=== PATIENT | female | born 1940 | race Caucasian/White ===

== ENCOUNTER → 2017-01-09 | Outpatient (CLI) | payer MEDICARE, BC ==
[~2017-01-09] MED LIST: AMPH20TA2 PO; ASPI325T32 PO; CHOL100062 PO; GLUC1TAB33 PO; MULT1TAB6 PO; OMEG1CAP31 PO; OXYC-481 PO; POTA99TA PO; UBID10CA7 PO
--- NOTE | 2017-01-09 16:23 | PN ---
Date/Time of Note Date/Time of Note DATE: 01/09/17 TIME: 16:19 Outpatient Progress Note Chief Complaint 9 month postop right total hip replacement HPI 76-year-old female presents today for 9 month postoperative follow-up status post right total hip replacement. Originally scheduled to follow-up 6 months after surgery but patient unfortunately had tragic passing of her . Patient is doing well. In regards to the right hip, she denies any pain complaints of the right hip. Patient is return to normal function. She states that upon discharge from the hospital from the surgery that was performed on 03/24/2016, she has had no use for walker or cane. Return to full functionality. Is very pleased status post surgery. Patient states however that she has had frequent urination, typically at night. She has followed up with her primary who underwent renal ultrasound showing no complications or findings. Primary has recommended that patient follow-up with urologist for further evaluation in regards to possible decreased muscle tone to the bladder. Patient is also been having dry mouth complaints but has ongoing follow-ups with primary. Denies any falls or injury to the right hip. Denies any chest pain or tightness. Denies any calf pain or shortness of breath. Patient is very pleased and happy status post hip replacement. Review of Systems Const: No Fever, no chills, no Fatigue, normal appetite, no diaphoresis. Resp: No SOB, no wheezing, no chest pain. CV: No chest pain, no palpitaions, no GILL. Physical Exam Blood pressure is 139/73, temperature is 98.2, pulse is 98, respiratory rate is 12, height is 5 foot 9 inches, weight is 140 pounds General Appearance: well-developed, well-nourished, in no acute distress. Right hip: Well-healed surgical scar. Patient has full range of motion with flexion and extension while lying supine. 0-45 with abduction. No pain with passive internal and external rotation. While lying seated at 90 she is able to elevate her knee and additional 20-25. No pain with range of motion. No tenderness to palpation. 5/5 strength on resistance with range of motion. Normal examination to the right hip. Imaging X-ray of the right hip and pelvis performed on 01/09/2017 showing all components appearing well aligned, attached and integrated to the bone. No signs of any lucency between metal and bone. Allergies Coded Allergies: levofloxacin (Verified Allergy, Unknown, 04/24/16) Assessment/Plan * Patient doing well with no complaints. * Continue with primary care in regards to referral to urologist. * Cleared from an orthopedic standpoint. * Patient may follow-up as needed Antibiotic card provided for patient. Patient made aware that dental prophylaxis will be necessary prior to any dental procedure for the remainder of their lifetime. Patient is aware that they must contact their dentist prior to any procedure to inform them of previous joint replacement with prosthesis implant so appropriate antibiotic may be prescribed to lower risk of joint infection status post surgery. Card will also serve as confirmation should patient be traveling and have to go through security such as at an airport. Dr. Zhao was present for examination and agrees with plan. Medications Home Meds Active Scripts Oxycodone Hcl* (IR) (Roxicodone*) 5 Mg Tab, 10 MG PO Q6 Y for PAIN LEVEL 4-7 for 10 Days, #30 TAB 0 Refills Prov:JESSICA GREWAL MD 04/28/16 Aspirin (Aspir-Kayla) 325 Mg Tablet.dr, 325 MG PO BID for 21 Days, #42 0 Refills Prov:JESSICA GREWAL MD 04/28/16 Reported Medications Folic Acid/Mv,Fe,Other Min (Centrum Complete Multivit Tab) 1 Each Tablet, 1 EACH PO, TAB 04/24/16 Gluc/Nilay-Msm#1/Vit C/Nicola/Bor (Umoftxy-Evvsq-Opf Complex Cplt) 1 Each Tablet, 1 EACH PO, TAB 04/24/16 Ubidecarenone (Coenzyme Q10) 10 Mg Capsule, 10 MG PO DAILY, CAP 04/24/16 Amphet Ihl-Hzflny-Z-Amphet (Adderall) 20 Mg Tablet, 20 MG PO DAILY, TAB 04/24/16 Cholecalciferol* (Vitamin D3*) 1,000 Unit Tablet, 2000 UNIT PO DAILY, TAB 04/24/16 Potassium Gluconate (Potassium) 99 Mg Tablet, 99 MG PO DAILY, TAB 04/24/16 Chaffee-3/Dha/Epa/Fish Oil (FISH OIL 1,000 MG SOFTGEL) 1 Each Capsule, 1 EACH PO DAILY, CAP 04/24/16 PETER GILBERT PA-C Jan 09, 2017 16:23
--- NOTE | 2017-01-09 18:11 | RADRPT ---
PROCEDURE: XR Right hip and pelvis. CLINICAL INDICATION: Right hip pain. Pelvic pain. Postop. TECHNIQUE: Two views. Frontal pelvis and frontal right hip. COMPARISON: 06/04/2016. FINDINGS: There is no fracture or dislocation. The soft tissues are normal. There is a right hip total arthroplasty which appears satisfactory. There are mild degenerative changes of the left hip with osteophytes noted. There is no lytic or blastic lesion. The upper pelvis is not completely included on the image. IMPRESSION: 1. Satisfactory postoperative appearance of the right hip. 2. Mild degenerative changes of the left hip. RPTAT: QQ .Victoriano Quintero MD, MD Date Time Electronically viewed and signed by .Victoriano Quintero MD, on 01/09/2017 18:11 .R/
== END | disposition home or self-care (01) ==
LOC: HKI 15:29
DX: Z47.1 Aftercare following joint replacement surgery (principal); Z96.641 Presence of right artificial hip joint; M25.551 Pain in right hip; Z79.82 Long term (current) use of aspirin
CPT/HCPCS: 73502; G0463